=== PATIENT | female | born 1945 | race Caucasian/White ===

== ENCOUNTER 2018-08-22 17:33 | Emergency (ER) | payer OTHER ==
--- NOTE | 2018-08-22 18:31 | RAD REPORT ---
EXAM DESCRIPTION: CT - Head Brain Wo Cont - 08/22/2018 6:21 pm CLINICAL HISTORY: Fall, head injury COMPARISON: None. TECHNIQUE: Axial 5 mm thick images of the head were obtained without IV contrast. All CT scans are performed using dose optimization technique as appropriate and may include automated exposure control or mA/KV adjustment according to patient size. FINDINGS: No intracranial hemorrhage, mass, edema or shift of mid-line structures. No acute infarcti on changes seen. No abnormal extra-axial fluid collections. Ventricles are normal. Atrophy and chroni c ischemic changes are minimal. Mastoid air cells and visualized portions of the paranasal sinuses are clear. No acute bony findings. Small right frontal scalp hematoma present. IMPRESSION: No hemorrhage or acute intracranial findings. Small right frontal scalp hematoma.
--- NOTE | 2018-08-22 19:16 | ER ---
Nurse's Notes [facility] Name: Robyn Moore Age: 73 yrs Sex: Female : 1945 Arrival Date: 08/22/2018 Time: 17:37 Bed 20 Private MD: None, None Diagnosis: Facial contusion Presentation: 08/22 17:45 Presenting complaint: Patient states: I had a mechanical fall from standing yesterday la1 morning, did not pass out and carried on with day. Today 1720 I noticed I had some swelling around my right eye and it seemed to be drooping some. Transition of care: patient was not received from another setting of care. Onset of symptoms was August 22, 2018. Risk Assessment: Do you want to hurt yourself or someone else? Patient reports no desire to harm self or others. Initial Sepsis Screen: Does the patient meet any 2 criteria? No. Patient's initial sepsis screen is negative. Does the patient have a suspected source of infection? No. Patient's initial sepsis screen is negative. Care prior to arrival: None. 17:45 Method Of Arrival: Ambulatory la1 17:45 Acuity: DAVID 3 la1 Historical: - Allergies: 17:47 No Known Allergies; la1 - PMHx: 17:47 Hypertension; la1 - Immunization history:: Adult Immunizations up to date. - Social history:: Smoking status: Patient/guardian denies using tobacco. - Ebola Screening: : No symptoms or risks identified at this time. - Family history:: not pertinent. - Hospitalizations: : No recent hospitalization is reported. Screenin:36 Abuse screen: Denies threats or abuse. Denies injuries from another. Nutritional lp1 screening: No deficits noted. Tuberculosis screening: No symptoms or risk factors identified. Fall Risk None identified. Assessment: 19:35 General: Appears in no apparent distress. Behavior is calm, cooperative, appropriate lp1 for age. Pain: Denies pain. Neuro: Level of Consciousness is awake, alert, obeys commands, Oriented to person, place, time, situation, Gait is steady, Speech is normal, Pupils are PERRLA. Cardiovascular: Patient's skin is warm and dry. Respiratory: Respiratory effort is even, unlabored. GI: No deficits noted. : No deficits noted. EENT: No deficits noted. Derm: Bruising that is slight bruising noted above right eye. Musculoskeletal: Circulation, motion, and sensation intact. Vital Signs: 17:47 BP 174 / 77; Pulse 78; Resp 16; Temp 97.5; Pulse Ox 98% on R/A; Height 5 ft. 1 in. la1 (154.94 cm); NIH Stroke Scale Scores: 17:51 NIHSS Score: 0 la1 ED Course: 17:37 Patient arrived in ED. sb2 17:38 None, None is Private Physician. sb2 17:47 Triage completed. la1 17:47 Arm band placed on left wrist. la1 18:31 CT Head Brain wo Cont In Process Unspecified. EDMS 19:04 Cuate Wynn MD is Attending Physician. rn 19:34 Desiree Aponte RN is Primary Nurse. lp1 19:37 Patient has correct armband on for positive identification. lp1 19:37 No provider procedures requiring assistance completed. Patient did not have IV access lp1 during this emergency room visit. Administered Medications: No medications were administered Outcome: 19:15 Discharge ordered by . rn 19:37 Discharged to home ambulatory, with friend. lp1 19:37 Condition: good 19:37 Discharge instructions given to patient, Instructed on discharge instructions, follow up and referral plans. Demonstrated understanding of instructions, follow-up care. 19:37 Patient left the ED. lp1 NIH Stroke Scale - NIH Stroke Score Date: 08/22/2018 Time: 17:51 Total Score = 0 1a. Level of Consciousness (LOC) - 0(Alert) 1b. Level of Consciousness (LOC) (Year \T\ Age) - 0(Both) 1c. LOC Commands (Open \T\ Closes Eyes/Pediatric Occupational Therapist) - 0(Both) 2. Best Gaze (Lateral Gaze Paresis) - 0(Normal) 3. Visual Field Loss - 0(No visual loss) 4. Facial Palsy - 0(Normal) 5a. Left Arm: Motor (10-second hold) - 0(No drift) 5b. Right Arm: Motor (10-second hold) - 0(No drift) 6a. Left Leg: Motor (5-second hold - always test supine) - 0(No drift) 6b. Right Leg: Motor (5-second hold - always test supine) - 0(No drift) 7. Limb Ataxia (finger/nose \T\ heel/rueda - test with eyes open) - 0(Absent) 8. Sensory Loss (pinprick arms/legs/face) - 0(Normal) 9. Best Language: Aphasia (description/naming/reading) - 0(No aphasia) 10. Dysarthria (speech clarity - read or repeat words) - 0(Normal) 11. Extinction and Inattention (visual/tactile/auditory/spatial/personal) - 0(No abnormality) Initials: la1 Signatures: Dispatcher [employer] EDMS Cuate Wynn MD MD rn Pena, Laura, RN RN lp1 Alf Khan RN RN la1 Taylor Duckworth2
--- NOTE | 2018-08-22 19:16 | EDPHYS ---
Physician Documentation [facility] Name: Robyn Moore Age: 73 yrs Sex: Female : 1945 Arrival Date: 08/22/2018 Time: 17:37 Bed 20 Private MD: None, None ED Physician Cuate Wynn HPI: 08/22 19:12 This 73 yrs old Female presents to ER via Ambulatory with complaints of Fall rn Injury - YESTERDAY. 19:12 Details of fall: The patient fell from an upright position. Onset: The symptoms/episode rn began/occurred yesterday. Associated injuries: The patient sustained injury to the head. Severity of symptoms: At their worst the symptoms were mild, in the emergency department the symptoms are unchanged. The patient has not experienced similar symptoms in the past. Reports tripped, snagged foot on surface, fell forward, hit head, no LOC, not on blood thinners, no other injury, felt fine, family member noticed drooping of right eye, unsure if from swelling from injury, so came in for eval. No headache/focal neurological complaint, no vomiting. No vision changes.. Historical: - Allergies: 17:47 No Known Allergies; la1 - PMHx: 17:47 Hypertension; la1 - Immunization history:: Adult Immunizations up to date. - Social history:: Smoking status: Patient/guardian denies using tobacco. - Ebola Screening: : No symptoms or risks identified at this time. - Family history:: not pertinent. - Hospitalizations: : No recent hospitalization is reported. ROS: 19:12 Constitutional: Negative for fever, chills, and weight loss, Eyes: Negative for rn redness, and discharge, ENT: + forehead injury and pain Neck: Negative for injury, pain, and swelling, Cardiovascular: Negative for chest pain, palpitations, and edema, Respiratory: Negative for shortness of breath, cough, wheezing, and pleuritic chest pain, Abdomen/GI: Negative for abdominal pain, nausea, vomiting, diarrhea, and constipation, Back: Negative for injury and pain, MS/Extremity: Negative for injury and deformity, Neuro: Negative for headache, weakness, numbness, tingling, and seizure. Exam: 19:12 Constitutional: This is a well developed, well nourished patient who is awake, alert, rn and in no acute distress. Head/Face: Normocephalic, + mild bruising to right forehead, extends inferiorly to upper eyelid and brow, no laceration, no depression Eyes: Pupils equal round and reactive to light, extra-ocular motions intact. Conjunctiva and sclera are non-icteric and not injected. Cornea within normal limits. ENT: no oral trauma Respiratory: No increased work of breathing, no retractions or nasal flaring. Speaking full sentences Skin: Warm, dry MS/ Extremity: Pulses equal, no cyanosis. Neurovascular intact. Full, normal range of motion. Equal circumference. Neuro: Awake and alert, GCS 15, oriented to person, place, time, and situation. Cranial nerves II-XII grossly intact. Motor strength 5/5 in all extremities. Sensory grossly intact. Cerebellar exam normal. Normal gait. Vital Signs: 17:47 BP 174 / 77; Pulse 78; Resp 16; Temp 97.5; Pulse Ox 98% on R/A; Height 5 ft. 1 in. la1 (154.94 cm); NIH Stroke Scale Scores: 17:51 NIHSS Score: 0 la1 MDM: 19:04 Patient medically screened. rn 19:12 Differential diagnosis: abrasion, closed head injury, contusion, fracture. Data rn reviewed: vital signs, nurses notes, radiologic studies, CT scan, and as a result, I will discharge patient. Counseling: I had a detailed discussion with the patient and/or guardian regarding: the historical points, exam findings, and any diagnostic results supporting the discharge/admit diagnosis, radiology results, the need for outpatient follow up, to return to the emergency department if symptoms worsen or persist or if there are any questions or concerns that arise at home. Special discussion: Based on the patient's history, exam and DX evaluation, there is no indication for emergent intervention or inpatient TX. It is understood by the patient/guardian that if the SXs persist or worsen they need to return immediately for re-evaluation. I discussed with the patient/guardian in detail that at this point there is no indication for admission to the hospital. It is understood, however, that if the symptoms persist or worsen the patient needs to return immediately for re-evaluation. 08/22 17:50 Order name: CT Head Brain wo Cont; Complete Time: 19:04 la1 Administered Medications: No medications were administered Disposition: 08/22/18 19:15 Discharged to Home. Impression: Facial contusion. - Condition is Stable. - Discharge Instructions: Facial or Scalp Contusion. - Medication Reconciliation Form, Thank You Letter, Antibiotic Education, Prescription Opioid Use form. - Follow up: Private Physician; When: As needed; Reason: Recheck today's complaints, Re-evaluation by your physician. - Problem is new. - Symptoms have improved. NIH Stroke Scale - NIH Stroke Score Date: 08/22/2018 Time: 17:51 Total Score = 0 1a. Level of Consciousness (LOC) - 0(Alert) 1b. Level of Consciousness (LOC) (Year \T\ Age) - 0(Both) 1c. LOC Commands (Open \T\ Closes Eyes/Sample Maker Original) - 0(Both) 2. Best Gaze (Lateral Gaze Paresis) - 0(Normal) 3. Visual Field Loss - 0(No visual loss) 4. Facial Palsy - 0(Normal) 5a. Left Arm: Motor (10-second hold) - 0(No drift) 5b. Right Arm: Motor (10-second hold) - 0(No drift) 6a. Left Leg: Motor (5-second hold - always test supine) - 0(No drift) 6b. Right Leg: Motor (5-second hold - always test supine) - 0(No drift) 7. Limb Ataxia (finger/nose \T\ heel/rueda - test with eyes open) - 0(Absent) 8. Sensory Loss (pinprick arms/legs/face) - 0(Normal) 9. Best Language: Aphasia (description/naming/reading) - 0(No aphasia) 10. Dysarthria (speech clarity - read or repeat words) - 0(Normal) 11. Extinction and Inattention (visual/tactile/auditory/spatial/personal) - 0(No abnormality) Initials: la1 Signatures: Dispatcher [employer] EDMS Cuate Wynn MD MD rn Pena, Laura, RN RN lp1 Alf Khan RN RN la1 Corrections: (The following items were deleted from the chart) 19:37 19:15 08/22/2018 19:15 Discharged to Home. Impression: Facial contusion. lp1 Condition is Stable. Forms are Medication Reconciliation Form, Thank You Letter, Antibiotic Education, Prescription Opioid Use. Follow up: Private Physician; When: As needed; Reason: Recheck today's complaints, Re-evaluation by your physician. Problem is new. Symptoms have improved. rn
[2018-08-22 20:14] VITALS: BP 174/77; TEMP 97.5; O2SAT 98
== END 2018-08-22 19:37 | disposition home or self-care (01) ==
LOC: ER 17:33
DX: S00.83XA Contusion of other part of head, initial encounter (principal); W19.XXXA Unspecified fall, initial encounter
CPT/HCPCS: 70450; 99283

== ENCOUNTER 2021-07-08 17:32 | Emergency (ER) | payer OTHER ==
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
[2021-07-08 19:04] VITALS: TEMP 98.5; O2SAT 97
[2021-07-08 19:06] VITALS: BP 145/68
== END 2021-07-08 18:59 | disposition home or self-care (01) ==
LOC: ER 17:32
DX: M54.2 Cervicalgia (principal); V49.40XA Driver injured in collision with unspecified motor vehicles in traffic accident, initial encounter; I10 Essential (primary) hypertension; Z95.818 Presence of other cardiac implants and grafts
CPT/HCPCS: 70450; 72125; 72131; 99283

== ENCOUNTER 2023-02-22 09:53 | Emergency (ER) | payer OTHER ==
--- OUTSIDE RECORDS SUMMARY | 2023-02-22 09:56 | XMS REPORT | Continuity of Care Document ---
:1945 Author Organization [facility] Address [address] [place] [address] Care Team Providers Name Role Phone Pcp, Patient Does Not Have A Primary Care Physician [id number] Yohana Hopper RN Attending Clinician Unavailable Only, Ang Db Test Attending Clinician Unavailable Unknown, Attending Attending Clinician Unavailable Linda Gauthier Attending Clinician LINDA PAVON Attending Clinician Unavailable Doctor Unassigned, [place] Attending Clinician Unavailable ISABEL DUDLEY Attending Clinician Unavailable Payers Payer Name Policy Type Policy Number Effective Date Expiration Date S ource Problems This patient has no known problems. Allergies, Adverse Reactions, Alerts Allergy Allergy Status Severity Reaction(s) Onset Inactive Treating Comm ents Source Name Type Date Date Clinician NO KNOWN Drug Active [facility] Class [facility] of [facility] Social History Social Habit Start Date Stop Date Quantity Comments Source Exposure to Not sure [facility] SARS-CoV-2 (event) Medica l Branch Sex Assigned [birth year] [facility] 00:00:00 00:00:00 [facility] Smoking Status Start Date Stop Date Source Unknown if ever smoked [facility] Medications This patient has no known medications. Immunizations Ordered Filled Immunization Date Status Comments [facility] e Immunization Name Name SARS-COV-2 COVID-2021-05-29 Completed Unive rsity of MODERNA VACCINE 00:00:00 [facility] SARS-COV-2 COVID-19 2021-05-29 Completed Unive rsity of MODERNA VACCINE 00:00:00 [facility] SARS-COV-2 COVID-19 2021-05-29 Completed Unive rsity of MODERNA VACCINE 00:00:00 [facility] Procedures This patient has no known procedures. Encounters Start End Encounter Admission Attending Care Care Encounter Source Date/Time Date/Time Type Type Clinicians Facility Department ID 2021-12-21 2021-12-21 Letter ROBERT Hopper [id number] Univers 00:00:00 00:00:00 (Out) Yohana ECHOLS [id number] it y of HOSPITAL [id number] Chung as [phone] [facility] 0[address] Branch 2021-12-20 2021-12-20 Laboratory Only, Ang Db Test [facility] [id number] Univers 14:15:00 14:30:00 Only Unknown, Attending [facility] [id number] ity of Linda Pavon [id number] [facility]?BLEA [id number] [address] MEDICAL OFFICE BUILDING 2021-12-20 2021-12-20 Outpatient R SAVANAH [facility] [id number] Univers 14:15:00 14:15:00 LINDA marie o f [facility] 2021-12-20 2021-12-20 Letter Doctor JONES [id number] Univers 00:00:00 00:00:00 (Out) UnassignedKINZA [id number] ity of [place] [facility] [id number] Chung as [id number] [facility] 044 Branch 2021-05-29 2021-05-29 Outpatient R LUIS ENRIQUE [facility] [id number] Univers 15:40:00 15:23:[address] [facility] Results This patient has no known results.
[2023-02-22] MEDS ORDERED: LIDOCAINE 1% MPF 5 ML VIAL ONE (10:32)
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
--- NOTE | 2023-02-22 11:18 | RAD REPORT ---
EXAM DESCRIPTION: CT - CTFB CLINICAL HISTORY: TRAUMA COMPARISON: Head C Spine Mpr Wo Con dated 02/22/2023 TECHNIQUE: Axial 2 mm thick images of the face were obtained with sagittal and coronal reconstructio n images. All CT scans are performed using dose optimization technique as appropriate and may include automated exposure control or mA/KV adjustment according to patient size. FINDINGS: No acute facial bone fracture is seen.The mandible is intact. The globes and orbital contents are grossly unremarkable.The paranasal sinuses and mastoids are clear . IMPRESSION: Negative for facial bone fracture.
--- NOTE | 2023-02-22 11:34 | EDPHYS ---
Physician Documentation [facility] Name: Robyn Moore Age: 78 yrs Sex: Female : 1945 Arrival Date: 02/22/2023 Time: 09:53 Bed 13 Private MD: ED Physician Yogi Cisse HPI: 02/22 10:03 This 78 yrs old Female presents to ER via Wheelchair with complaints of Fall Injury. jh7 10:03 Details of fall: The patient fell from an upright position, while walking. Onset: The jh7 symptoms/episode began/occurred acutely. Associated injuries: The patient sustained injury to the head, laceration, 2 cm(s), of the right eyebrow. 78-year-old female reports that her foot got stuck on the tile floor causing her to slip and fall. Complains of laceration to right eyebrow. Denies LOC and is not on any blood thinners. tetanus up to date.. Historical: - Allergies: 10:03 No Known Drug Allergies; vg1 - PMHx: 10:03 Hypertension; vg1 - PSHx: 10:03 bladder suspension; bilateral hip replacement; section; heart stent; left vg1 ankle surgery; Cholecystectomy; bilateral hip replacement; - Immunization history:: Adult Immunizations up to date. - Immunization history: Last tetanus immunization: unknown. - Social history:: Smoking status: unknown. ROS: 10:03 Constitutional: Negative for fever, chills, and weight loss, Eyes: Negative for injury, jh7 pain, redness, and discharge, Neck: Negative for injury, pain, and swelling, Cardiovascular: Negative for chest pain, palpitations, and edema, Respiratory: Negative for shortness of breath, cough, wheezing, and pleuritic chest pain, Back: Negative for injury and pain, MS/Extremity: Negative for injury and deformity, Neuro: Negative for headache, weakness, numbness, tingling, and seizure. 10:03 Skin: Positive for laceration(s), of the face. 10:03 All other systems are negative. Exam: 10:03 Constitutional: This is a well developed, well nourished patient who is awake, alert, jh7 and in no acute distress. Eyes: Pupils equal round and reactive to light, extra-ocular motions intact. Lids and lashes normal. Conjunctiva and sclera are non-icteric and not injected. Cornea within normal limits. Periorbital areas with no swelling, redness, or edema. 10:03 Neck: Trachea midline, no thyromegaly or masses palpated, and no cervical lymphadenopathy. Supple, full range of motion without nuchal rigidity, or vertebral point tenderness. No Meningismus. Cardiovascular: Regular rate and rhythm with a normal S1 and S2. No gallops, murmurs, or rubs. Normal PMI, no JVD. No pulse deficits. Respiratory: Lungs have equal breath sounds bilaterally, clear to auscultation and percussion. No rales, rhonchi or wheezes noted. No increased work of breathing, no retractions or nasal flaring. Back: No spinal tenderness. No costovertebral tenderness. Full range of motion. MS/ Extremity: Pulses equal, no cyanosis. Neurovascular intact. Full, normal range of motion. Neuro: Awake and alert, GCS 15, oriented to person, place, time, and situation. Cranial nerves II-XII grossly intact. Motor strength 5/5 in all extremities. Sensory grossly intact. Cerebellar exam normal. Normal gait. 10:03 Head/face: Noted is a laceration(s), 2 cm(s). 10:03 Skin: injury, laceration(s), the wound is approximately 2 cm(s), with a depth of 0.2 cm(s), of the right eyebrow. Vital Signs: 10:12 BP 145 / 69; Pulse 83; Resp 17; Temp 97.8; Pulse Ox 95% on R/A; Weight 99.79 kg; Height ll1 5 ft. 2 in. ; Pain 7/10; 11:53 BP 144 / 62; Pulse 79; Resp 18; Pulse Ox 99% on R/A; kr3 10:12 Body Mass Index 40.24 (99.79 kg, 157.48 cm) ll1 10:12 Pain Scale: Adult ll1 Rosie Coma Score: 11:57 Eye Response: spontaneous(4). Motor Response: obeys commands(6). Verbal Response: kr3 oriented(5). Total: 15. Trauma Score (Adult): 11:00 Eye Response: spontaneous(1); Verbal Response: oriented(1); Motor Response: obeys kr3 commands(2); Systolic BP: > 89 mm Hg(4); Respiratory Rate: 10 to 29 per min(4); Rosie Score: 15; Trauma Score: 12 Laceration: 10:35 Wound Repair of 2cm ( 0.8in ) subcutaneous laceration to right eyebrow. Distal jh7 neuro/vascular/tendon intact. Anesthesia: Local anesthetic administered with 3 mls of 1% lidocaine. Wound prep: Moderate cleansing with hibiclenz by me. Skin closed with 4 6-0 Prolene using simple sutures and sterile technique. Dressed with non-adherent dressing. Patient tolerated well. MDM: 09:59 Patient medically screened. [facility] 11:50 Differential diagnosis: closed head injury, contusion, laceration. Data reviewed: vital [facility] signs, nurses notes, radiologic studies, CT scan. I considered the following discharge prescriptions or medication management in the emergency department Medications were administered in the Emergency Department. See MAR. Care significantly affected by the following chronic conditions: Hypertension. Counseling: I had a detailed discussion with the patient and/or guardian regarding: the historical points, exam findings, and any diagnostic results supporting the discharge/admit diagnosis, the need for outpatient follow up, for suture removal, to return to the emergency department if symptoms worsen or persist or if there are any questions or concerns that arise at home. 02/22 10:06 Order name: CT Head C Spine; Complete Time: 11:31 [facility] 02/22 10:06 Order name: CT Facial Bones W/O Con; Complete Time: 11:31 [facility] 02/22 10:06 Order name: Dressing - Wound; Complete Time: 10:32 [facility] 02/22 10:06 Order name: Gloves, Sterile: 7'0; Complete Time: 10:32 [facility] 02/22 10:06 Order name: Prolene, Sutures: 6'0; Complete Time: 10:32 [facility] 02/22 10:06 Order name: Setup Suture Tray; Complete Time: 10:33 [facility] Administered Medications: 11:48 Drug: Lidocaine Infiltration (1 %) 5 ml {Note: administered at bedside for procedure by cassandra Gibson NP .} Volume: 5 ml; Route: Infiltration; Disposition Summary: 02/22/23 11:33 Discharge Ordered Location: Home [facility] Problem: new [facility] Symptoms: have improved [facility] Condition: Stable [facility] Diagnosis - Laceration of the face without foreign body [facility] Followup: [facility] - With: Private Physician - When: 7 - 10 days - Reason: Staple/Suture removal Discharge Instructions: - Discharge Summary Sheet [facility] - Laceration Care, Adult [facility] - Facial Laceration [facility] Forms: - Medication Reconciliation Form [facility] - Thank You Letter [facility] Signatures: Dispatcher [employer] Sameera Kirby RN RN vg1 Arlene Gibson, PHOTOENGRAVING MACHINE OPERATOR/TENDER PHOTOENGRAVING MACHINE OPERATOR/TENDER 7 Ro Beckett RN RN kr3 Corrections: (The following items were deleted from the chart) 12:50 10:03 78-year-old female reports that her foot got stuck on the tile floor causing her 7 to slip and fall. Complains of laceration to right eyebrow. Denies LOC and is not on any blood thinners.. [facility]
--- NOTE | 2023-02-22 11:34 | ER ---
Nurse's Notes [facility] Name: Robyn Moore Age: 78 yrs Sex: Female : 1945 Arrival Date: 02/22/2023 Time: 09:53 Bed 13 Private MD: Diagnosis: Laceration of the face without foreign body Presentation: 02/22 10:04 Chief complaint: Patient states: Trip and fall 45 min [employer]. No LOC. R eyebrow vg1 laceration. Coronavirus screen: Client denies travel out of the [place] in the last 14 days. At this time, the client does not indicate any symptoms associated with coronavirus-19. Ebola Screen: Patient denies travel to an Ebola-affected area in the 21 days before illness onset. Initial Sepsis Screen: Does the patient meet any 2 criteria? No. Patient's initial sepsis screen is negative. Does the patient have a suspected source of infection? No. Patient's initial sepsis screen is negative. Risk Assessment: Do you want to hurt yourself or someone else? Patient reports no desire to harm self or others. Onset of symptoms was February 22, 2023. 10:04 Method Of Arrival: Wheelchair vg1 10:04 Acuity: DAVID 3 vg1 11:55 Care prior to arrival: None. Mechanism of Injury: Fall from standing position. Trauma kr3 event details: Injury occurred in the [facility]. Triage Assessment: 10:12 General: Appears uncomfortable, Behavior is calm, cooperative, appropriate for age. ll1 Pain: Complains of pain in face Quality of pain is described as aching. Neuro: Reports headache. Derm: Reports laceration R eyebrow. Historical: - Allergies: 10:03 No Known Drug Allergies; vg1 - PMHx: 10:03 Hypertension; vg1 - PSHx: 10:03 bladder suspension; bilateral hip replacement; section; heart stent; left vg1 ankle surgery; Cholecystectomy; bilateral hip replacement; - Immunization history:: Adult Immunizations up to date. - Immunization history: Last tetanus immunization: unknown. - Social history:: Smoking status: unknown. Screenin:54 [facility] ED Fall Risk Assessment (Adult) History of falling in the last 3 months, kr3 including since admission Yes- single mechanical fall (1 pt) Confusion or Disorientation No (0 pts) Intoxicated or Sedated No (0 pts) Impaired Gait No (0 pts) Mobility Assist Device Used No (0 pt) Altered Elimination No (0 pt) Score/Fall Risk Level 0 - 2 = Low Risk Oriented to surroundings, Maintained a safe environment, Educated pt \T\ family on fall prevention, incl call for assistance when getting out of bed, Assessed \T\ reinforced patient's understanding of fall precautions, Hourly rounding (assess needs \T\ fall precautionary measures) done. Abuse screen: Denies threats or abuse. Nutritional screening: No deficits noted. Tuberculosis screening: No symptoms or risk factors identified. Primary Survey: 11:00 NO uncontrolled hemorrhage observed. Breathing/Chest: Spontaneous respiratory effort, kr3 equal unlabored respirations, breath sounds clear bilaterally, regular pattern, symmetrical chest rise and fall. Circulation: No external hemorrhage present. Regular and strong central pulse, skin warm/dry/normal color. Disability Client is alert. Exposure/Environment: A warming method has been applied: A warm blanket has been provided to the patient. 11:55 Reassessment Breathing: Spontaneous respiratory effort, equal unlabored respirations, kr3 breath sounds clear bilaterally, regular pattern with symmetrical chest rise and fall. Circulation: No external hemorrhage noted. Regular and strong central pulse, skin warm/dry/normal color. Disability: Alert. Assessment: 10:33 General: Appears in no apparent distress. comfortable, Behavior is calm, cooperative, kr3 appropriate for age. Pain: Complains of pain in right side of face above eyebrow. Neuro: Level of Consciousness is awake, alert, obeys commands, Oriented to person, place, time, situation. Cardiovascular: Patient's skin is warm and dry. Respiratory: Airway is patent Respiratory effort is even, unlabored, Respiratory pattern is regular, symmetrical. GI: No signs and/or symptoms were reported involving the gastrointestinal system. : No signs and/or symptoms were reported regarding the genitourinary system. EENT: No signs and/or symptoms were reported regarding the EENT system. Derm: Wound noted above right eyebrow. 11:53 Reassessment: Patient appears in no apparent distress at this time. Patient is alert, kr3 oriented x 3, equal unlabored respirations, skin warm/dry/pink. Vital Signs: 10:12 BP 145 / 69; Pulse 83; Resp 17; Temp 97.8; Pulse Ox 95% on R/A; Weight 99.79 kg; Height ll1 5 ft. 2 in. ; Pain 7/10; 11:53 BP 144 / 62; Pulse 79; Resp 18; Pulse Ox 99% on R/A; kr3 10:12 Body Mass Index 40.24 (99.79 kg, 157.48 cm) ll1 10:12 Pain Scale: Adult ll1 Rosie Coma Score: 11:57 Eye Response: spontaneous(4). Motor Response: obeys commands(6). Verbal Response: kr3 oriented(5). Total: 15. Trauma Score (Adult): 11:00 Eye Response: spontaneous(1); Verbal Response: oriented(1); Motor Response: obeys kr3 commands(2); Systolic BP: > 89 mm Hg(4); Respiratory Rate: 10 to 29 per min(4); Rosie Score: 15; Trauma Score: 12 ED Course: 09:54 Patient arrived in ED. rg4 09:59 Arlene Gibson FNP is [facility]. jh7 09:59 Yogi Cisse MD is Attending Physician. jh7 10:03 Arm band placed on Patient placed in an exam room, on a stretcher. vg1 10:05 Triage completed. vg1 10:15 Bed in low position. Side rails up X 1. kr3 10:19 Ro Beckett, KRISTI is Primary Nurse. kr3 10:41 CT Head C Spine In Process Unspecified. EDMS 10:42 CT Facial Bones W/O Con In Process Unspecified. EDMS 11:55 No provider procedures requiring assistance completed. Patient did not have IV access kr3 during this emergency room visit. 11:58 Patient maintains SpO2 saturation greater than 95% on room air. kr3 11:59 Thermoregulation: warm blanket given to patient. kr3 Administered Medications: 11:48 Drug: Lidocaine Infiltration (1 %) 5 ml {Note: administered at bedside for procedure by cassandra Gibson NP .} Volume: 5 ml; Route: Infiltration; Medication: 11:59 VIS not applicable for this client. kr3 Intake: 11:57 PO: 0ml; Total: 0ml. kr3 Outcome: 11:33 Discharge ordered by . jh7 11:56 Discharged to home ambulatory. kr3 11:56 Condition: stable 11:56 Discharge instructions given to patient, Instructed on discharge instructions, follow up and referral plans. Demonstrated understanding of instructions, follow-up care. 11:57 Patient's length of stay was not longer than 2 hours. kr3 12:01 Patient left the ED. kr3 Signatures: Dispatcher [employer] Kaylee Kirby rg4 Sameera Humphrey, RN RN vg1 Priscilla Deleon RN RN ll1 Arlene Gibson, CHLORINE PLANT OPERATOR CHLORINE PLANT OPERATOR 7 Ro Beckett RN RN kr3
[2023-02-22 12:27] VITALS: TEMP 97.8
[2023-02-22 12:28] VITALS: BP 144/62; O2SAT 99
== END 2023-02-22 12:01 | disposition home or self-care (01) ==
LOC: ER 09:53
PROC: 0HQ1XZZ Repair Face Skin, External Approach (ICD-10-PCS; principal; 2023-02-22)
DX: S01.81XA Laceration without foreign body of other part of head, initial encounter (principal); I10 Essential (primary) hypertension; Z95.818 Presence of other cardiac implants and grafts
CPT/HCPCS: 70450; 72125; 70486; 76377; 99284; 12011; J2001

== ENCOUNTER 2023-03-01 11:38 | Emergency (ER) | payer OTHER ==
--- OUTSIDE RECORDS SUMMARY | 2023-03-01 11:42 | XMS REPORT | Continuity of Care Document ---
:1945 Author Organization [facility] Address [address] [facility] [address] [place] [address] Care Team Providers Name Role Phone Pcp, Patient Does Not Have A Primary Care Physician [id number] Yohana Hopper RN Attending Clinician Unavailable Only, Ang Db Test Attending Clinician Unavailable Unknown, Attending Attending Clinician Unavailable Linda Gauthier Attending Clinician LINDA PAVON Attending Clinician Unavailable Doctor Unassigned, [place] Attending Clinician Unavailable ISABEL DUDLEY Attending Clinician Unavailable Payers Payer Name Policy Type Policy Number Effective Date Expiration Date S ource Problems This patient has no known problems. Allergies, Adverse Reactions, Alerts Allergy Allergy Status Severity Reaction(s) Onset Inactive Treating Comm ents Source Name Type Date Date Clinician NO KNOWN Drug Active [facility] ALLERGIE Class ity of [facility] Social History Social Habit Start Date Stop Date Quantity Comments Source Exposure to Not sure [facility] SARS-CoV-2 (event) Medica l Branch Sex Assigned At [birth year] [facility] 00:00:00 00:00:00 [facility] Smoking Status Start Date Stop Date Source Unknown if ever smoked [facility] Medications This patient has no known medications. Immunizations Ordered Filled Immunization Date Status Comments [facility] e Immunization Name Name SARS-COV-2 COVID-2021-05-29 Completed Unive rsity of [facility]ER[facility] VACCINE 00:00:00 [facility] SARS-COV-2 COVID-19 2021-05-29 Completed Unive rsity of MODERNA VACCINE 00:00:00 [facility] SARS-COV-2 COVID-19 2021-05-29 Completed Unive rsity of MODERNA VACCINE 00:00:00 [facility] Procedures This patient has no known procedures. Encounters Start End Encounter Admission Attending Care Care Encounter Source Date/Time Date/Time Type Type Clinicians Facility Department ID 2021-12-21 2021-12-21 Letter ROBERT Hopper [id number] Univers 00:00:00 00:00:00 (Out) Yohana ECHOLS [id number] it y of HOSPITAL [id number] Chung as [phone] [facility] 0[address] Branch 2021-12-20 2021-12-20 Laboratory Only, Ang Db Test [facility] [id number] Univers 14:15:00 14:30:00 Only Unknown, Attending [facility] [id number] ity of Linda Pavon [id number] [facility]?BLEA [phone] [address] MEDICAL OFFICE BUILDING 2021-12-20 2021-12-20 Outpatient R SAVANAH [facility] [id number] Univers 14:15:00 14:15:00 LINDA marie o f [facility] 2021-12-20 2021-12-20 Letter Doctor JONES [id number] Univers 00:00:00 00:00:00 (Out) UnassignedKINZA [id number] ity of [place] [facility] [id number] Chung as [phone] [facility] [address] Branch 2021-05-29 2021-05-29 Outpatient R LUIS ENRIQUE [facility] [id number] Univers 15:40:00 15:23:17 ISABEL marie [facility] Results This patient has no known results.
--- NOTE | 2023-03-01 11:59 | EDPHYS ---
Physician Documentation [facility] Name: Robyn Moore Age: 78 yrs Sex: Female : 1945 Arrival Date: 03/01/2023 Time: 11:38 Bed 16 Private MD: ED Physician Cuate Wynn HPI: 03/01 12:00 This 78 yrs old Female presents to ER via Ambulatory with complaints of STICHES REMOVED.snw 12:00 Onset: The symptoms/episode began/occurred acutely. The patient has not experienced snw similar symptoms in the past. Historical: - Allergies: 11:46 No Known Drug Allergies; bp - Home Meds: :46 aspirin 81 mg Oral cpDR [Active]; Vitamin C Oral daryl [Active]; losartan 50 mg Oral tab bp 1 tab once daily [Active]; - PMHx: :46 Hypertension; bp - PSHx: :46 bilateral hip replacement; bilateral hip replacement; bladder suspension; bp section; Cholecystectomy; heart stent; left ankle surgery; - Immunization history:: Adult Immunizations up to date. - Social history:: Smoking status: Patient denies any tobacco usage or history of. ROS: 12:00 Constitutional: Negative for fever, chills, and weight loss, Eyes: Negative for injury, snw pain, redness, and discharge, ENT: Negative for injury, pain, and discharge, Neck: Negative for injury, pain, and swelling, Cardiovascular: Negative for chest pain, palpitations, and edema, Respiratory: Negative for shortness of breath, cough, wheezing, and pleuritic chest pain, Abdomen/GI: Negative for abdominal pain, nausea, vomiting, diarrhea, and constipation, Back: Negative for injury and pain, : Negative for injury, bleeding, discharge, and swelling, MS/Extremity: Negative for injury and deformity, Skin: Negative for injury, rash, and discoloration, here for suture removal Neuro: Negative for headache, weakness, numbness, tingling, and seizure, Psych: Negative for depression, anxiety, suicide ideation, homicidal ideation, and hallucinations. Exam: 11:59 Constitutional: This is a well developed, well nourished patient who is awake, alert, snw and in no acute distress. Eyes: Pupils equal round and reactive to light, extra-ocular motions intact. Lids and lashes normal. Conjunctiva and sclera are non-icteric and not injected. Cornea within normal limits. Periorbital areas with no swelling, redness, or edema. ENT: Nares patent. No nasal discharge, no septal abnormalities noted. Tympanic membranes are normal and external auditory canals are clear. Oropharynx with no redness, swelling, or masses, exudates, or evidence of obstruction, uvula midline. Mucous membranes moist. Neck: Trachea midline, no thyromegaly or masses palpated, and no cervical lymphadenopathy. Supple, full range of motion without nuchal rigidity, or vertebral point tenderness. No Meningismus. Chest/axilla: Normal chest wall appearance and motion. Nontender with no deformity. No lesions are appreciated. Cardiovascular: Regular rate and rhythm with a normal S1 and S2. No gallops, murmurs, or rubs. Normal PMI, no JVD. No pulse deficits. Respiratory: Lungs have equal breath sounds bilaterally, clear to auscultation and percussion. No rales, rhonchi or wheezes noted. No increased work of breathing, no retractions or nasal flaring. Abdomen/GI: Soft, non-tender, with normal bowel sounds. No distension or tympany. No guarding or rebound. No evidence of tenderness throughout. Back: No spinal tenderness. No costovertebral tenderness. Full range of motion. Skin: Warm, dry with normal turgor. Normal color with no rashes, no lesions, and no evidence of cellulitis. MS/ Extremity: Pulses equal, no cyanosis. Neurovascular intact. Full, normal range of motion. Neuro: Awake and alert, GCS 15, oriented to person, place, time, and situation. Cranial nerves II-XII grossly intact. Motor strength 5/5 in all extremities. Sensory grossly intact. Cerebellar exam normal. Normal gait. Psych: Awake, alert, with orientation to person, place and time. Behavior, mood, and affect are within normal limits. 11:59 Head/face: Noted is well approximated laceration with 4 6-[address], removed with scalpel and forceps. No bleeding.. Vital Signs: 11:48 BP 141 / 72; Pulse 77; Resp 16; Temp 97.5; Pulse Ox 98% on R/A; iw MDM: 11:49 Patient medically screened. snw 12:01 Differential diagnosis: wound recheck. Data reviewed: vital signs, nurses notes. snw Counseling: I had a detailed discussion with the patient and/or guardian regarding: the historical points, exam findings, and any diagnostic results supporting the discharge/admit diagnosis, to return to the emergency department if symptoms worsen or persist or if there are any questions or concerns that arise at home. Special discussion: I discussed in detail with the patient the higher chance of wound infection based on his presenting history. Based on the history and exam findings, there is no indication for further emergent testing or inpatient evaluation. I discussed with the patient/guardian the need to see the primary care provider for further evaluation of the symptoms. Administered Medications: No medications were administered Disposition: 12:52 Co-signature as Attending Physician, Cuate Wynn MD I reviewed the patient's care rn provided by the Advanced Practice Provider and agree with the diagnosis and treatment plan. Disposition Summary: 03/01/23 11:59 Discharge Ordered Location: Home snw Condition: Stable snw Diagnosis - Encounter for removal of sutures snw Followup: snw - With: Emergency Department - When: As needed - Reason: Worsening of condition Followup: snw - With: Private Physician - When: 2 - 3 days - Reason: Recheck today's complaints, Continuance of care, Re-evaluation by your physician Discharge Instructions: - Discharge Summary Sheet snw - Suture Removal, Care After snw - Wound Care, Adult snw Forms: - Medication Reconciliation Form snw - Thank You Letter snw - Antibiotic Education snw - Prescription Opioid Use snw Signatures: Rosario Méndez FNP-C SENIOR CLINICAL DATA COORDINATOR-Csnw Cuate Wynn MD MD rn Peltier, Brian RN RN
--- NOTE | 2023-03-01 11:59 | ER ---
Nurse's Notes [facility] Name: Robyn Moore Age: 78 yrs Sex: Female : 1945 Arrival Date: 03/01/2023 Time: 11:38 Bed 16 Private MD: Diagnosis: Encounter for removal of sutures Presentation: 03/01 11:48 Chief complaint: Patient states: needs sutures removed from right eyebrow area , placed iw one week ago. Coronavirus screen: At this time, the client does not indicate any symptoms associated with coronavirus-19. Ebola Screen: Patient negative for fever greater than or equal to 101.5 degrees Fahrenheit, and additional compatible Ebola Virus Disease symptoms Patient denies exposure to infectious person. Patient denies travel to an Ebola-affected area in the 21 days before illness onset. No symptoms or risks identified at this time. Initial Sepsis Screen: Does the patient meet any 2 criteria? No. Patient's initial sepsis screen is negative. Does the patient have a suspected source of infection? No. Patient's initial sepsis screen is negative. Risk Assessment: Do you want to hurt yourself or someone else? Patient reports no desire to harm self or others. Onset of symptoms was February 22, 2023. 11:48 Method Of Arrival: Ambulatory iw 11:48 Acuity: DAVID 4 iw Triage Assessment: 11:50 General: Appears in no apparent distress. comfortable, Behavior is calm, cooperative, bp appropriate for age. Pain: Denies pain. EENT: No deficits noted. Neuro: No deficits noted. Historical: - Allergies: 11:46 No Known Drug Allergies; bp - Home Meds: 11:46 aspirin 81 mg Oral cpDR [Active]; Vitamin C Oral daryl [Active]; losartan 50 mg Oral tab bp 1 tab once daily [Active]; - PMHx: 11:46 Hypertension; bp - PSHx: 11:46 bilateral hip replacement; bilateral hip replacement; bladder suspension; bp section; Cholecystectomy; heart stent; left ankle surgery; - Immunization history:: Adult Immunizations up to date. - Social history:: Smoking status: Patient denies any tobacco usage or history of. Screenin:46 [facility] ED Fall Risk Assessment (Adult) History of falling in the last 3 months, bp including since admission No falls in past 3 months (0 pts). Abuse screen: Denies threats or abuse. Denies injuries from another. Nutritional screening: No deficits noted. Tuberculosis screening: No symptoms or risk factors identified. Assessment: 11:46 General: SEE TRIAGE NOTE. bp 12:07 Reassessment: DC HOME. bp Vital Signs: 11:48 BP 141 / 72; Pulse 77; Resp 16; Temp 97.5; Pulse Ox 98% on R/A; iw ED Course: 11:42 Patient arrived in ED. ts1 11:44 Yamil Arnold, RN is Primary Nurse. bp 11:44 Rosario Méndez FNP-C is PHCP. snw 11:45 Cuate Wynn MD is Attending Physician. snw 11:46 Arm band placed on. bp 11:46 Patient has correct armband on for positive identification. Bed in low position. Call bp light in reach. Side rails up X2. 11:49 Triage completed. iw 12:06 SUTURE REMOVAL. Patient did not have IV access during this emergency room visit. bp Administered Medications: No medications were administered Medication: 11:46 VIS not applicable for this client. bp Outcome: 11:59 Discharge ordered by . snw 12:07 Discharged to home ambulatory. bp 12:07 Condition: stable 12:07 Discharge instructions given to patient, Instructed on discharge instructions, follow up and referral plans. Demonstrated understanding of instructions, follow-up care. 12:07 Patient left the ED. bp Signatures: Rosario Méndez FNP-C HEALTH SAFETY SPECIALIST-Csnw Sobia Brenner RN RN iw Yamil Arnold RN RN bp Simpson, Tanya, PAS PAS ts1
[2023-03-01 12:17] VITALS: BP 141/72; TEMP 97.5; O2SAT 98
== END 2023-03-01 12:07 | disposition home or self-care (01) ==
LOC: ER 11:38
DX: Z48.02 Encounter for removal of sutures (principal)
CPT/HCPCS: 99282